=== PATIENT | male | born 1945 | race Two or more races ===

== ENCOUNTER 2020-06-09 16:42 | Emergency (ER) | payer OTHER ==
[~2020-06-09] VITALS: Ht 180.3 cm; Wt 85.7 kg
[2020-06-09] MEDS ORDERED: GLIMEPIRIDE4 M1 (17:12)
[2020-06-09] MEDS ORDERED: SIMVASTATIN5 MG (17:12)
[2020-06-09] MEDS ORDERED: LOSARTAN POTASS50 MG (17:12)
[2020-06-09] MEDS ORDERED: CHILDREN'S ASPI81 MG (17:12)
== END 2020-06-09 21:44 | disposition home or self-care (01) ==
LOC: ER 16:42
DX: R31.0 Gross hematuria (principal); R10.9 Unspecified abdominal pain

== ENCOUNTER 2020-06-15 11:15 | Outpatient (CLI) | payer OTHER ==
[~2020-06-15 11:15] MED LIST: CHILDREN'S ASPI81 MG; GLIMEPIRIDE4 M1; LOSARTAN POTASS50 MG; SIMVASTATIN5 MG
== END 2020-06-15 11:34 | disposition home or self-care (01) ==
LOC: MRI 11:15
DX: M54.16 Radiculopathy, lumbar region (principal)
CPT/HCPCS: 72148

== ENCOUNTER → 2020-07-18 13:42 | Outpatient (CLI) | payer OTHER | END | disposition home or self-care (01) | LOC: LAB 13:42 | PROVIDERS: ATTEND Urology | DX: D68.8 Other specified coagulation defects (principal); R31.0 Gross hematuria ==